=== PATIENT | female | born 1955 | race Caucasian/White ===

== ENCOUNTER → 2016-08-17 | Outpatient (CLI) | payer BC | LOC: FIMAGING 13:54 | PROVIDERS: ATTEND Internal Medicine | DX: Z12.31 Encounter for screening mammogram for malignant neoplasm of breast (principal); Z80.3 Family history of malignant neoplasm of breast | CPT/HCPCS: G0202 ==

== ENCOUNTER → 2016-11-05 | Outpatient (CLI) | payer BC, OTHER | LOC: FIMAGING 10:21 | PROVIDERS: ATTEND Internal Medicine | DX: Z13.820 Encounter for screening for osteoporosis (principal); M85.80 Other specified disorders of bone density and structure, unspecified site; Z78.0 Asymptomatic menopausal state; Z79.890 Hormone replacement therapy ==

== ENCOUNTER → 2016-12-15 | Outpatient (CLI) | payer OTHER | LOC: FIMAGING 07:54 | PROVIDERS: ATTEND Radiology Diagnostic Radiology | DX: I83.812 Varicose veins of left lower extremity with pain (principal) ==

== ENCOUNTER 2017-07-12 12:52 | Day surgery (SDC) | payer OTHER ==
[2017-07-12] MEDS ORDERED: BACITRACIN 50,000 UNITS/10 ML SYR IRR ONE (13:10)
[2017-07-12] MEDS ORDERED: ROPIVACAINE HCL 150 MG/30 ML INJ ONE (13:11)
[2017-07-12] MEDS ORDERED: LIDOCAINE 2% 5 ML SDV ONE ×2 (13:12→14:23)
[2017-07-12] MEDS ORDERED: ceFAZolin 2 GM/SWFI 2 GM/20 ML SYR IVP ONE (13:16)
[2017-07-12 13:44] VITALS: PULSE 65
[2017-07-12] MEDS ORDERED: LR 1,000 ML IV ONE (13:46)
[2017-07-12] MEDS ORDERED: fentaNYL 100 MCG/2 ML INJ ONE (14:09)
[2017-07-12] MEDS ORDERED: MIDAZOLAM 2 MG/2 ML VIAL ONE (14:10)
[2017-07-12] MEDS ORDERED: PROPOFOL/EMULSION 500 MG/50 ML BOTTLE IV ONE (14:10)
[2017-07-12] MEDS ORDERED: BUPIVACAINE 0.5% 10 ML SDV ONE (14:13)
--- NOTE | 2017-07-12 14:40 | PDANEPAE ---
ANE Past Medical History - Cardiovascular History Hx Hypertension: No Hx Arrhythmias: No Hx Chest Pain: No Hx Coronary Artery / Peripheral Vascular Disease: No Hx CHF / Valvular Disease: No Hx Palpitations: No - Pulmonary History Hx COPD: No Hx Asthma/Reactive Airway Disease: No Hx Recent Upper Respiratory Infection: No Hx Oxygen in Use at Home: No Hx Sleep Apnea: No Sleep Apnea Screening Result - Last Documented: Negative - Neurologic History Hx Cerebrovascular Accident: No Hx Seizures: No Hx Dementia: No - Endocrine History Hx Diabetes: No - Renal History Hx Renal Disorders: No - Liver History Hx Hepatic Disorders: No - Neurological & Psychiatric Hx Hx Neurological and Psychiatric Disorders: No - Cancer History Hx Cancer: No - Congenital Disorder History Hx Congenital Disorders: No - GI History Hx Gastrointestinal Disorders: Yes Gastrointestinal History Comment: mild reflux - Other Health History Other Health History: none - Chronic Pain History Chronic Pain: No - Surgical History Prior Surgeries: left foot surgery ANE Review of Systems Review of Systems: - Exercise capacity METS (RN): 5 METS ANE Patient History - Allergies Allergies/Adverse Reactions: MUSSEL Allergy (Intermediate, Uncoded 07/06/17 14:26) VOMITING/DIARRHEA [place] Allergy (Mild, Uncoded 07/06/17 14:26) VOMITING/DIARRHEA - Home Medications Home Medications: PROMETRIUM 07/17/09 [Last Taken 2 Days Ago ~07/10/17] Estradiol 11/26/15 [Last Taken 07/12/17] Aspirin EC 81 mg (*) 07/06/17 [Last Taken 1 Week Ago ~07/05/17] - NPO status NPO Since - Liquids (Date): 07/12/17 NPO Since - Liquids (Time): 09:00 NPO Since - Solids (Date): 07/11/17 NPO Since - Solids (Time): 19:30 - Smoking Hx Smoking Status: Former smoker - Family Anes Hx Family Hx Anesthesia Complications: none ANE Labs/Vital Signs - Vital Signs Blood Pressure: 136/71 Heart Rate: 65 Respiratory Rate: 18 O2 Sat (%): 91 Height: 162.56 cm Weight: 51.71 kg ANE Physical Exam - Airway Neck exam: FROM Mallampati Score: Class 1 - Pulmonary Pulmonary: no respiratory distress, no rales or rhonchi, clear to auscultation - Cardiovascular Cardiovascular: regular rate and rhythym, no murmur, rub, or gallop - ASA Status ASA Status: II ANE Anesthesia Plan Anesthesia Plan: MAC
[2017-07-12] MEDS ORDERED: OXYCODONE/APAP 5/325 TAB PO PRN (14:43)
[2017-07-12] MEDS ORDERED: ACETAMINOPHEN 500 MG TAB PO PRN (14:43)
[2017-07-12] MEDS ORDERED: fentaNYL 100 MCG/2 ML INJ IVP PRN (14:43)
[2017-07-12] MEDS ORDERED: ONDANSETRON 4 MG/2 ML VIAL IVP PRN (14:43)
[2017-07-12] MEDS ORDERED: HYDROCODONE/APAP 5/325 TAB PO PRN (14:43)
[2017-07-12] MEDS ORDERED: NALOXONE HCL 0.4 MG/ML INJ IVP PRN (14:43)
[2017-07-12] MEDS ORDERED: METOCLOPRAMIDE 10 MG/2 ML VIAL IVP PRN (14:43)
[2017-07-12] MEDS ORDERED: ALBUTEROL 3 ML DEYVIAL IH PRN (14:43)
[2017-07-12] MEDS ORDERED: DEXAMETHASONE 4 MG/ML VIAL IVP PRN (14:43)
[2017-07-12] MEDS ORDERED: LR 500 ML IV PRN (14:43)
[2017-07-12] MEDS ORDERED: MEPERIDINE 25 MG/ML SYR IVP PRN (14:43)
[2017-07-12] MEDS ORDERED: PROMETHAZINE HCL 25 MG/ML INJ IVP PRN (14:43)
[2017-07-12] MEDS ORDERED: KETOROLAC 30 MG/1 ML SDV ONE (15:51)
--- NOTE | 2017-07-12 15:53 | POSTOPPROG ---
Post Op Note Date of Operation: 07/12/17 Surgeon: Paige Oden General Office Assistant: none Anesthesiologist: Shefali Crouch Pre-op Diagnosis: hallux rigidus Post-op Diagnosis: hallux rigidus Indication: pain, osteoarthritis Procedure: renate implant arthroplasty Cartiva 8mm Findings: Advanced degeneration of the first MTP joint Inf/Abcess present in the surg proc area at time of surgery?: No Depth: Deep Incisional (Fascial) EBL: Minimal Complications: none Specimen(s): no specimens
[2017-07-12 16:20] VITALS: TEMP 97
[2017-07-12 16:57] VITALS: RESP 16
[2017-07-12 17:50] VITALS: BP 131/68; O2SAT 95
--- NOTE | 2017-07-12 21:18 | GOP ---
[f rep st] OPERATIVE REPORT DATE OF OPERATION: 07/12/2017 SURGEON: Paige Oden DPM ANESTHESIA: Monitored anesthesia care/light general. ANESTHESIOLOGIST: Isabel Crouch MD PREOPERATIVE DIAGNOSIS: Hallux rigidus, right foot. POSTOPERATIVE DIAGNOSIS: Hallux rigidus, right foot. PROCEDURE PERFORMED: Cheilectomy with renate-implant arthroplasty utilizing Cartiva, 1st metatarsophalangeal joint, right foot. FINDINGS: Advanced degeneration of the 1st metatarsal head. Dorsal loose bone fragment. INDICATIONS: Significant pain, 1st metatarsophalangeal joint, despite conservative treatment efforts which have included custom orthotics, modification in shoe gear. Patient underwent a renate-implant arthroplasty type procedure utilizing BioPro implant several years ago and happy with the results. Postoperatively, she had some transfer metatarsalgia and stress fracture, otherwise with a good outcome. Examining the right foot first metatarsal phalangeal joint also with degenerative changes. I discussed the pros and cons of the various procedures. Because there was some slight medial drifting of the 2nd digit on the right foot and with the history of stress fractures and transfer metatarsalgia, I decided that the Cartiva implant may be the better choice for Rafy at this time in an effort to avoid these complications. Rafy understands the risks, possibility that a later date joint fusion may be needed. However, she wishes to proceed with the surgery where she can immediately weight bear and with a shorter recovery at this time as compared to fusion procedure. She elects to proceed with surgery on the right foot. DESCRIPTION OF PROCEDURE: Patient was brought into the operating room, placed on the operating table in a supine position. Intravenous sedation, light general, administered by the anesthesiologist. Posterior tibial and peripheral nerve block was obtained utilizing a total of 20 cc of a 1:1:1 mix of 2% Xylocaine plain, 0.5% Marcaine plain, and 0.5% ropivacaine. The lower extremity was prepped and draped in the usual sterile manner. After the limb had been elevated and exsanguinated with an Esmarch bandage, an ankle tourniquet was inflated to 230 mmHg, and the procedure was begun. Webril padding was utilized under the ankle cuff. Attention was directed toward the dorsomedial aspect of the 1st metatarsophalangeal joint where a linear incision was created. Incision was carefully deepened with care of neurovascular structures and then clamped and cauterized bleeders. Linear capsulotomy performed, exposing the 1st metatarsophalangeal joint. 80% of the cartilage was absent on the central medial aspect of the 1st metatarsal head, thin layer of cartilage was noted in the more lateral aspect of the joint. Contour of metatarsal head was irregular , more prominent of the metatarsal head laterally, and yet degeneration was medially. On the base of the proximal phalanx, dorsal 30% exposed bone, and large dorsal loose bone fragment on the base of the phalanx. This was resected with a rongeur and the site smoothened with a powered rotating bur. Dorsal bone spur off the 1st metatarsal head was resected with a sagittal saw and the site smoothened with a powered rotating bur. Wound was copiously irrigated with bacitracin irrigation solution. Preoperatively and intraoperatively, it was decided that the 8 mm Cartiva implant would fit optimally. K-wire was utilized and an axis guide. C-arm pictures were taken in preparation for placement of the Cartiva implant. Site was then drilled shy of 2-3 mm. Site copiously flushed with bacitracin irrigation solution. K-wire removed, and the Cartiva implant was carefully placed into position. With passive dorsiflexion and plantarflexion, joint was smooth gliding. Implant sat approximately 1.5 mm proud on the lateral aspect and about 2.5 mm proud medially. C-arm pictures were taken, verifying improvement in the joint space. Wound again was irrigated with bacitracin irrigation solution. Photos were taken intraoperatively. Capsule was closed with 2-0 and 3-0 Vicryl. Tourniquet was released, and a normal hyperemic response was noted to all digits. Subcutaneous closure achieved with 4-0 Monocryl. Skin was closed with 4-0 Prolene in horizontal mattress and simple interrupted suture manner. Dressings included Xeroform, 4 x 4's, Sarah, reinforced with tape and an Christopher bandage. Patient tolerated the procedure and anesthesia well and left the operating room with vital signs stable and vascular status intact to all digits. There were no intraoperative complications. In postoperative recovery, she was doing well. Her will be providing her transportation home. She is to follow up at our office in 3 days for a wound check. PROGNOSIS: Good. PATHOLOGY: No specimen sent. No additional injectables. She was fitted with a Cryo/Cuff and a postoperative shoe. /[id number]/MODL MTDD
== END 2017-07-12 17:20 | disposition home or self-care (01) ==
LOC: FSGY 12:52
PROVIDERS: ATTEND Podiatrist
DX: M20.21 Hallux rigidus, right foot (principal); M19.071 Primary osteoarthritis, right ankle and foot; M24.074 Loose body in right toe joint(s)
CPT/HCPCS: J0690; J1885; J2250; J2704; J2795; J3010

== ENCOUNTER → 2017-08-20 | Outpatient (CLI) | payer OTHER | LOC: FIMAGING 15:04 | PROVIDERS: ATTEND Internal Medicine | DX: Z12.31 Encounter for screening mammogram for malignant neoplasm of breast (principal); Z80.3 Family history of malignant neoplasm of breast ==

== ENCOUNTER → 2018-08-22 | Outpatient (CLI) | payer OTHER | LOC: FIMAGING 13:54 | PROVIDERS: ATTEND Internal Medicine | DX: Z12.31 Encounter for screening mammogram for malignant neoplasm of breast (principal); Z80.3 Family history of malignant neoplasm of breast ==